=== PATIENT | male | born 1970 | race Caucasian/White ===

== ENCOUNTER → 2021-08-20 10:58 | Outpatient (CLI) | payer BC, SELFPAY ==
--- NOTE | ~2021-08-20 | XR_ITS ---
XR shoulder RT min 2V DATE: 08/20/2021 15:39 INDICATION: Arthralgia. Positive MARLO TECHNIQUE: 3 views COMPARISON: None FINDINGS: No fracture or dislocation, periosteal reaction or bone destruction. No abnormal soft tissu e calcification. IMPRESSION: No significant abnormality Reviewed, dictated and finalized at location A. IANCE SERVICER IMPRESSION: No significant abnormality
--- NOTE | ~2021-08-20 | XR_ITS ---
XR shoulder LT min 2V DATE: 08/20/2021 15:40 INDICATION: Arthralgia. Positive MARLO. TECHNIQUE: 4 views COMPARISON: None FINDINGS: There is prominent spurring at the lateral articular margin of the clavicle at the acromioc lavicular joint. No fracture or dislocation, periosteal reaction or bone destruction or abnormal soft tissue calcifica tion. IMPRESSION: Prominent degenerative spurring of the left acromioclavicular joint Reviewed, dictated and finalized at location A. RR TECHNICIAN
== END ==
PROVIDERS: Visit Provider Physician Assistant
DX: R76.8 Other specified abnormal immunological findings in serum (principal); M25.50 Pain in unspecified joint; M25.512 Pain in left shoulder; M25.511 Pain in right shoulder; M25.552 Pain in left hip; M25.551 Pain in right hip; M77.8 Other enthesopathies, not elsewhere classified
CPT/HCPCS: 73030

== ENCOUNTER → 2021-08-23 13:52 | Outpatient (CLI) | payer BC, SELFPAY ==
--- NOTE | ~2021-08-23 | XR_ITS ---
XR hip BI wo pelvis 08/23/2021 14:21 Indication: Arthralgias Procedure: 2 views of each hip Comparison: No prior studies for comparison. Findings: No fracture, subluxation or dislocation. No significant joint effusion. Surrounding osseous structures and soft tissues are unremarkable. Impression: 1: No acute abnormality of the hips. Reviewed, dictated and finalized at location A. D HAND Impression: 1: No acute abnormality of the hips.
== END ==
PROVIDERS: Visit Provider Physician Assistant
DX: R76.8 Other specified abnormal immunological findings in serum (principal); M25.50 Pain in unspecified joint
CPT/HCPCS: 73521

== ENCOUNTER 2022-02-06 00:29 | Day surgery (SDC) | payer BC, SELFPAY ==
[2022-02-03 09:53] VITALS: BMI 34.2
--- NOTE | 2022-02-03 10:01 | PC.NURSE ---
Report to the Outpatient Waiting Room, entrance under the green pavilion located off [facility], at time _1130_ on date _[id number]_. OR Time: 130pm_. - You and your visitor will be asked to self-screen and do not enter if you have any COVID symptoms. - Only one visitor and NO children visitors are allowed at this time. - The patient visitor is requested to leave or wait in car when not with patient due to restrictions. - A mask is required within the hospital. Patients may have clear liquids (water, carbonated beverages, clear teas, apple juice) until 3 hours prior to surgery with a maximum of 20 ounces. - No food from midnight until time of surgery Take the following medications with a SIP of water the morning of surgery: Prednisone Medications to discontinue per physician ___Vitamins and supplements Date to take last dose___Stop today. Please no make-up, nail [place] islander, hairspray, perfume, deodorant, or body powder the day of surgery. No jewelry (including any body piercings) or valuables the day of surgery, leave them at home. Please take a shower or bath the night before, or the morning of, surgery with an antibacterial soap. Wear comfortable, loose fitting clothing. - Jewelry must be removed prior to entering the operating room. Rings and piercings that are not removed may be cut off. - The hospital will not accept responsibility for valuables. - Please leave all valuables, including medications, at home the day of surgery. If you are going home after surgery, a licensed electric truck driver must drive you home. - NO public transportation without another adult. - We recommend that an adult stay with you for 24 hours following discharge. - We also recommend that you do not drive, make important decision, drink alcoholic beverages, or take any drugs that were not prescribed by your health care provider for at least 24 hours after your discharge time. Follow any additional instructions given to you from your surgeon. If you or anyone in your household have experienced Covid symptoms in the past week, please notify your surgeon or the nurse liaison at the phone number below for possible testing. Telephone instructions given to __Patient___and asked if any additional questions and then verbalized understanding. Patient advised to call surgeon office or pre surgery nurse liaison [phone] if any additional questions.
[2022-02-06] VITALS (7 sets, daily range): BP systolic 142–155; BP diastolic 66–84; PULSE 60–88; RESP 12–20; TEMP 36.5–36.9; O2SAT 98–100
--- NOTE | 2022-02-06 08:53 | P.PNAN_ITS ---
Anes - Initial Pre Proc Eval Procedure: Operation Date: 02/06/22 13:30 Proposed Procedures p Left Inguinal Hernia Repair - Prince Roy MD Date/Time: 02/06/22 08:53 Surgeon: Prince Roy MD Pre Op Diagnosis: Lt Ing Hernia Patient Data Age: 51 Gender: M Height: 1.73 m Weight: 102.2 kg Allergies Allergy/AdvReac Type Severity Reaction Status Date / Time No Known Allergies Allergy Verified 02/03/22 09:51 Home Medications Medication Instructions Recorded Confirmed Type tzjrwnct-iqx-vavok acid 300 1 tablet PO DAILY 08/05/21 02/06/22 History mcg-lycopene 600 mcg-lutein 300 mcg tablet (Centrum Silver Men) prednisone 5 mg tablet 6 mg PO BID 01/14/22 02/06/22 History calcium carbonate 500 mg calcium 500 mg PO DAILY 01/23/22 02/06/22 History (1,250 mg) chewable tablet (Calcium 500) tumeric 100 mg-ed 150 mg-olive 2 cap PO BID 02/03/22 02/06/22 History 50 mg-oreg 150 mg-caprylate capsule Patient hx anesthesia problems: none Family hx anesthesia problems: none Results Review: All pre-operative results and documents have been reviewed as part of the pre- operative evaluation. [facility] Past Medical History Medical History History of rectal fissure Family History Family History Father Family history of Alzheimer's disease Malignant neoplasm of prostate Mother Breast cancer Diabetes mellitus Depression Grandparent Colon cancer Grandparent Malignant neoplasm of prostate Other Family history of cardiovascular disease Hypertension Social History Social History Smoking status: Never smoker Alcohol intake: current Drinks per week: 12 Living arrangements: with family Spiritual care concerns: No Anes - Eval Final PreProcedure Day of Procedure 02/06/22 08:53 Patient weight: obese Heart: regular rate and rhythm Lungs: clear to auscultation Airway: Mallampati scale class II Neurological: alert and oriented Last oral intake: >/= 8 hours ASA classification: II Emergent: no Anesthetic plan: proceed Anesthesia type and monitoring: general GIVS and standard monitoring Results Review: All pre-operative results and documents have been reviewed as part of the pre- operative evaluation. Informed Consent: The patient's anesthetic plan and its attendant risks and benefits were discussed with the patient/family/POA. Questions were solicited and answers provided to the satisfaction of the patient/family/POA.
--- NOTE | 2022-02-06 12:11 | WPDHPUPDATE1 ---
History and Physical Update Update Date/Time: 02/06/22 12:11 History and Physical has been reviewed, including an updated exam of the patient. There are NO changes in the patient's condition. Risks, benefits, and alternatives have been discussed and questions answered. Patient agrees to proceed with procedure.
[2022-02-06] MEDS: LACTATED RINGERS 1,000 ML 30 ML IV CONT ×2 (12:45→16:11)
[2022-02-06] MEDS: ACETAMINOPHEN 500 MG TABLET 1000 MG PO (12:51)
[2022-02-06] MEDS: KETOROLAC 15 MG/ML VIAL (*BKC) IV PUSH (12:52)
[2022-02-06] MEDS: ceFAZolin 2 GM/D5W 50 ML 2 GM/50 ML BAG IVPB (14:06)
[2022-02-06] MEDS: BUPIVACAINE/EPINEPHRINE 0.25% 50 ML VIAL INFILTRATE (14:27)
--- NOTE | 2022-02-06 15:38 | W.PM.PROC2 ---
Procedure Note - Detailed Date of Procedure 02/06/22 Pre-op Diagnosis Lt Ing Hernia Post-op Diagnosis Same Procedure Performed Left inguinal hernia repair with large PerFix Light plug and patch Surgeon Prince Roy MD Mechanical Engineering Advisor KARINA Bey Anesthesia General (LMA), Local (0.25% BUPIVACAINE WITH EPINEPHRINE) and Other (Xaracoll) Indications Patient is a 51-year-old man with a bulge and discomfort in left groin. Examination showed a reducible left inguinal hernia. He is taken to surgery now for repair Findings Patient had an indirect hernia. There was no direct component Description of Procedure The patient was taken to surgery and anesthesia was introduced. Prep and drape of the left groin and genitalia was carried out. The proposed incision was marked on the skin. Local anesthetic was infiltrated into the skin and deeper subcutaneous tissues. Incision was made and dissection was carried down into the subcutaneous. Additional local was infiltrated into the subcutaneous. We were not able to keep the patient comfortable with the dissection. He was converted to general with LMA. This worked much better. We continued with the surgery and dissected down to the external oblique aponeurosis. The aponeurosis was exposed as was the external ring. Additional local was infiltrated deep to the aponeurosis in the area of the spermatic cord and inguinal canal contents. The aponeurosis was opened laterally and extended medially through the external ring. The leaves the aponeurosis were then freed from the underlying cord contents. The cord was then mobilized medially on a [place] drain. We dissected back to the internal ring further mobilizing the cord. The ileo inguinal nerve was carefully preserved and was left attached to the spermatic cord throughout the surgery. No direct hernia was noted. We dissected in the anteromedial aspect of the cord and found an indirect hernia sac. The sac was dissected free from the cord structures. It was dissected back to a high dissection. Was dunked into the retroperitoneum. The large PerFix Light plug was then placed in the defect. The plug was sutured to the transversalis fascia with interrupted 3-0 Vicryl suture. I then cut the patch to the appropriate size and placed over the inguinal canal floor. The lateral leaves were passed beyond the cord. I put a couple of 3-0 Vicryl sutures to anchor the distal aspect of the patch to the reflection of the inguinal ligament. The 1st piece of Xaracoll was then placed over the mesh. The cord and ilioinguinal nerve were then laid over the Xaracoll. The external oblique aponeurosis was then closed with interrupted 3-0 Vicryl suture. The 2nd piece of Xaracoll was then placed over the external oblique aponeurosis. Iggy's fascia was closed with interrupted 3-0 Vicryl suture. The last piece of Xaracoll was then placed in the subcutaneous. The skin was loosely approximated with interrupted subcuticular 4-0 Vicryl suture. The skin was finally closed with a running 4-0 Monocryl skin suture. The wound was dressed with Exofin surgical adhesive. The patient was awakened and taken to recovery in good condition. Sponge and needle counts were correct x2. Implants Large PerFix Light plug and patch, Xaracoll Estimated Blood Loss -5 Drains No Packing No Pathology None sent Complications No immediate complications Condition Stable Disposition PACU [facility] Billing Surgery - Charge Forward: Surgery Billing (Left inguinal hernia repair)
== END 2022-02-06 17:05 | disposition home or self-care (01) ==
PROVIDERS: Visit Provider Surgery
PROC: (CPT 49505; principal; 2022-02-06 13:30)
DX: K40.90 Unilateral inguinal hernia, without obstruction or gangrene, not specified as recurrent (principal); E66.9 Obesity, unspecified; Z68.38 Body mass index [BMI] 38.0-38.9, adult
CPT/HCPCS: 49505; A9270; C1781; J0690; J1100; J1885; J2250; J2405; J2704; J3010; J7120

== ENCOUNTER 2023-09-16 12:04 | Emergency (ER) | payer BC, SELFPAY ==
[2023-09-16] VITALS (7 sets, daily range): BP systolic 131–188; BP diastolic 69–82; PULSE 56–98; RESP 10–19; O2SAT 98–100
--- NOTE | ~2023-09-16 | CT_ITS ---
EXAMINATION: CTA chest PE protocol DATE: 09/16/2023 14:02 INDICATION: Chest discomfort and heaviness. TECHNIQUE: Computed tomography angiography (CTA) of the chest was performed with 100 mL Omnipaque-350 intravenous contrast timed to evaluate the pulmonary arteries. Coronal maximum intensity projection 3D-reconstructions were created by the technologist. Automated exposure control and iterative reconst ruction technique were employed. The dose-length product was 650.31 mGy-cm. COMPARISON: Chest CT 02/20/2012 FINDINGS: The lungs demonstrate mild atelectasis. No pleural effusion. The heart size is normal. No p ericardial effusion. There is no pulmonary embolus. There is mild thoracic spondylosis. IMPRESSION: 1. No pulmonary embolus. Reviewed, dictated and finalized at location A. IMPRESSION: 1. No pulmonary embolus.
--- NOTE | ~2023-09-16 | XR_ITS ---
EXAMINATION: XR chest 2V DATE: 09/16/2023 12:42 INDICATION: Central chest pain. Back pain. TECHNIQUE: Frontal and lateral views of the chest were obtained. COMPARISON: Chest 2 views 02/20/2012 FINDINGS: There is no pneumonia, pleural effusion, or pneumothorax. The heart size is normal. IMPRESSION: 1. No acute cardiopulmonary disease. Reviewed, dictated and finalized at location A.
--- NOTE | 2023-09-16 12:08 | ECG_ITS ---
Measurements Intervals [place] Rate: 61 P: 41 IA: 131 QRS: -3 QRSD: 110 T: 19 QT: 421 QTc: 426 Interpretive Statements SINUS RHYTHM INCOMPLETE RIGHT BUNDLE BRANCH BLOCK POSSIBLE LEFT VENTRICULAR HYPERTROPHY BORDERLINE ECG NO PREVIOUS ECG AVAILABLE FOR COMPARISON Electronically Signed On 09-16-2023 12:54:22 CDT by Skip Holder D.O.
[2023-09-16] MEDS: ASPIRIN 81 MG CHEWABLE TABLET 324 MG PO (12:19)
[2023-09-16 12:21] LABS: Glucose Point of Care 99 mg/dl (65-105)
[2023-09-16 12:22] LABS: Basophils Absolute Auto 0.1 K/mm3 (0.0-0.1); Basophils Percent Auto 0.7 % (0.2-1.2); Eosinophils Absolute Auto 0.2 K/mm3 (0-0.3); Eosinophils Percent Auto 2.1 % (0-4.4); Hematocrit 40.5 % (42.0-52.0); Hemoglobin 13.6 g/dL (14.0-18.0); Immature Granulocyte Absolute 0.01 K/mm3 (0.00-0.031); Immature Granulocyte Percent A 0.1 % (0-0.5); Lymphocytes Absolute Auto 2.65 K/mm3 (0.9-3.2); Lymphocytes Percent Auto 37.9 % (18.3-44.2); Mean Corpuscular HGB Conc 33.6 g/dl (32-36); Mean Corpuscular Hemoglobin 29.8 pg (26-34); Mean Corpuscular Volume 88.6 fl (80-100); Mean Platelet Volume 9.5 fl (7.4-10.4); Monocytes Absolute Auto 0.9 K/mm3 (0.1-0.6); Monocytes Percent Auto 12.4 % (2.6-8.5); Neutrophils Absolute Auto 3.3 K/mm3 (1.3-6.7); Neutrophils Percent Auto 46.8 % (45.5-73.1); Platelet Count Result 257 k/mm3 (150-375); Red Blood Count 4.57 M/mm3 (4.6-6.20); Red Cell Distribution Width 12.9 % (11.5-14.5)
[2023-09-16 12:32] LABS: Alanine Aminotransferase 25 U/L (6-50); Albumin Level 4.5 g/dL (3.5-5.1); Alkaline Phosphatase 69 U/L (38-126); Anion Gap 6 mmol/L (4-12); Aspartate Amino Transferase 29 U/L (17-59); Bilirubin,Total 0.8 mg/dL (0.2-1.3); Blood Urea Nitrogen 13 mg/dL (9-20); Calcium 9.4 mg/dL (8.4-10.2); Carbon Dioxide 29 mmol/L (22-30); Chloride 103 mmol/L (98-107); Estimated Glomerular Filt Rate > 60; Glucose 106 mg/dL (65-110); Lipase 136 U/L (23-300); Potassium 3.9 mmol/L (3.4-5.0); Sodium 138 mmol/L (137-145)
[2023-09-16 12:36] LABS: INR 0.9; Partial Thromboplastin Time 29.9 Seconds (22.3-36.8); Prothrombin Time 12.9 Seconds (11.1-14.7)
[2023-09-16 12:43] LABS: Troponin I < 0.012 ng/mL (0.000-0.034)
--- NOTE | 2023-09-16 13:10 | ED.CHESTPAIN ---
HPI - Chest Pain General Chief Complaint: Chest Pain Stated Complaint: chest pain, lightheaded Time Seen by Provider: 09/16/23 12:18 History of Present Illness HPI narrative: 53-year-old male present to the emergency department for evaluation intermittent heart palpitations this chest pressure and shortness of breath. Patient states he has had intermittent issues with heart palpitations of lost his entire life but typically they last only a few seconds. Patient states over the course of the last few days he has been having more frequent sensations of a rapid and irregular heartbeat. Patient states he has had episodes lasting up to 10 minutes and when he woke up Thursday he had heart palpitations nausea heartburn with associated nausea and diarrhea. Patient states he took some Tums and the symptoms resolved. Patient reports he also had episode of heart palpitations after exertion today. Patient states that he did have an episode on a treadmill a few weeks ago when he was walking and his heart rate was at 140 is 160s which was atypical for the level of his exertion. Patient has not worked out since then. Patient states that he has had issues with chest pain and been diagnosed previously with anxiety. Patient did have a stress test approximately 5-10 years ago. Related Data Home Medications Medication Instructions Recorded Confirmed gwaywvfn-ri-vzhsp 300 mcg-K 60 1 tablet PO DAILY 08/05/21 03/13/22 mcg-lycop 600 mcg-lutein 300 mcg tablet (Centrum Silver Men) prednisone 5 mg tablet 6 mg PO BID 01/14/22 03/13/22 Allergies Allergy/AdvReac Type Severity Reaction Status Date / Time No Known Allergies Allergy Verified 03/13/22 09:16 Review of Systems Review of Systems: All systems reviewed & are unremarkable except as noted in HPI and below PMFSH Past Medical History Medical History History of rectal fissure Surgical History Surgical History H/O inguinal hernia repair Left Inguinal Hernia Repair 02/06/22 Family History Family History Father Family history of Alzheimer's disease Malignant neoplasm of prostate Mother Breast cancer Diabetes mellitus Depression Grandparent Colon cancer Grandparent Malignant neoplasm of prostate Other Family history of cardiovascular disease Hypertension Social History Social History Smoking status: Never smoker Alcohol intake: current Drinks per week: 12 Living arrangements: with family Spiritual care concerns: No Exam Narrative: APPEARANCE: Well appearing, no pain, no distress, well-nourished. HEAD: normocephalic, atraumatic. EYES: PERRLA/EOMI, conjunctivae clear. NOSE: Normal no drainage EARS:TMS clear with good light reflex. THROAT: Pharynx clear, no exudate. NECK: Supple. No adenopathy, no masses. RESPIRATORY: Airway patent, respirations nonlabored. Clear to auscultation bilaterally, no rales, rhonchi, wheezing. CARDIOVASCULAR: Regular rate and rhythm without murmurs rubs or gallops. ABDOMINAL: Soft, nontender, nondistended, normal bowel sounds MUSCULOSKELETAL: Moves all extremities. Strength/ROM intact, No edema, No calf tenderness. NEURO: Alert. Cranial nerves II through XII intact. Grossly intact SKIN: Warm, dry. Normal Color Course Course Emergency Course: Patient was updated on the results of his workup and patient was encouraged to have close follow-up with Cardiology. Vital Signs Vital signs: Vital Signs Pulse Rate 60 09/16/23 12:12 Respiratory Rate 10 L 09/16/23 12:12 Blood Pressure 188/78 H 09/16/23 12:12 Pulse Oximetry 100 09/16/23 12:12 Oxygen Delivery Room Air 09/16/23 12:12 Pulse Rate 65 09/16/23 16:29 Respiratory Rate 13 09/16/23 16:29 Blood Pressure 138/69 0
[2023-09-16 13:28] LABS: Magnesium 2.1 mg/dL (1.6-2.3)
[2023-09-16 13:38] LABS: D Dimer 0.66 ug/mL (<0.48)
[2023-09-16 14:49] LABS: NT Pro B Type Natriuretic Pept 93 pg/mL (19.9-100)
--- NOTE | 2023-09-16 15:08 | ECG_ITS ---
Measurements Intervals [place] Rate: 52 P: 37 SD: 144 QRS: 1 QRSD: 102 T: 21 QT: 443 QTc: 412 Interpretive Statements SINUS BRADYCARDIA INCOMPLETE RIGHT BUNDLE BRANCH BLOCK BORDERLINE ECG COMPARED TO ECG 09/16/2023 12:10:57 SINUS BRADYCARDIA NOW PRESENT Electronically Signed On 09-16-2023 16:12:30 CDT by Skip Holder D.O.
[2023-09-16 15:58] LABS: Troponin I < 0.012 ng/mL (0.000-0.034)
== END 2023-09-16 16:30 | disposition home or self-care (01) ==
PROVIDERS: Emergency Medicine; Emergency Provider Emergency Medicine; PCP Physician Assistant
DX: R00.2 Palpitations (principal); R00.1 Bradycardia, unspecified; I45.10 Unspecified right bundle-branch block; R94.31 Abnormal electrocardiogram [ECG] [EKG]
CPT/HCPCS: 36415; 71046; 71275; 80053; 82948; 83690; 83735; 83880; 84443; 84484; 85025; 85380; 85610; 85730; 93005; 99284; A9270; Q9967

== ENCOUNTER 2024-09-27 00:11 | Day surgery (SDC) | payer BC, SELFPAY ==
[2024-06-03 14:35] VITALS: BMI 31.8
--- NOTE | 2024-06-26 10:50 | SUR.PREOP ---
Pt called this am to cancel his procedure on 06/27 due to provider availability. Pt rescheduled to 09/27 at 0730.
[2024-09-19 10:41] VITALS: BMI 31.8
--- OUTSIDE RECORDS SUMMARY | 2024-09-27 00:13 | XMS_ITS | Referral Summary ---
Author Organization [facility] [address] [facility] Address [address] [place] [id number] Care Team Providers Care Marketing And Communications Officer Name Role Phone Sylvester Dougherty Primary Care Provider Aleksandr Cisneros MD Unavailable [phone] Encounters Date Type Department Care Team Description 07/21/2024 11:30 AM MERCURY WASHER Office Visit [facility] Medical Group Cardiology [address] [facility] [address] [place] [id number] Anna Mercado NP Palpitations (Primary Dx) from Last 3 Months Allergies No known active allergies Medications No known medications Active Problems Problem Noted Date Diagnosed Date Chest pain 12/31/2023 Palpitations 12/31/2023 residential (current) use of systemic steroids Assessment & Plan (08/20/2022 3:03 PM MERCURY WASHER): Patient was advised of the potential side effects of steroids, including but not limited to increased blood sugar, weight gain, avascular necrosis, glaucoma, cataracts, and/or osteoporosis. Discussed optimizing bone health while on systemic steroids including vitamin D 2000IU daily and calcium 600-800mg daily. DEXA ordered last visit but has not been done. Assessment & Plan (04/23/2022 3:22 PM CDT): Patient was advised of the potential side effects of steroids, including but not limited to increased blood sugar, weight gain, avascular necrosis, glaucoma, cataracts, and/or osteoporosis. Discussed optimizing bone health while on systemic steroids including vitamin D 2000IU daily and calcium 600-800mg daily. Will check DEXA as he has been on prednisone for close to a year now. Assessment & Plan (01/14/2022 3:00 PM CDT): Patient was advised of the potential side effects of steroids, including but not limited to increased blood sugar, weight gain, avascular necrosis, glaucoma, cataracts, and/or osteoporosis. Discussed optimizing bone health while on systemic steroids including vitamin D 2000IU daily and calcium 600-800mg daily. No need for DEXA or anti-resorptive medications at this time. Assessment & Plan (10/15/2021 4:42 PM CDT): Patient was advised of the potential side effects of steroids, including but not limited to increased blood sugar, weight gain, avascular necrosis, glaucoma, cataracts, and/or osteoporosis. Discussed optimizing bone health while on systemic steroids including vitamin D 2000IU daily and calcium 600-800mg daily. No need for DEXA or anti-resorptive medications at this time. Positive MARLO (antinuclear antibody) 08/20/2021 Myalgia 08/20/2021 Overview (09/02/2021): Labs (08/20/2021): Cbc, cmp wnl, ESR 19, CRP 3.3, negative myositis panel, LDH 145, ald 4.4, CK 53 AVISE (08/20/2021): MARLO pos by lara only. Equivocal anti-B2 glycoprotein IgM (9.2), +anti-histone (1.79), neg ANCA, MPO, Pr3, GBM. Hepatitis negative: 08/2021 XR 08/20/21: R shoulder: negative L shoulder: prominent degenerative spurring of left AC joint. B/l hips: negative Assessment & Plan (08/20/2022 3:06 PM MERCURY WASHER): Serologies revealed normal muscle enzymes, negative myositis panel, and normal inflammatory markers (ESR/CRP). AVISE panel was unremarkable for any autoantibodies and ANCA vasculitis panel was also negative. Myalgias significantly improved with prednisone 10mg BID but denied complete resolve. Pruritic red rash on lower legs resolved with prednisone and denies personal hx of psoriasis however remains suspicious at this time. Since last visit, he tapered completely off prednisone as of 08/20/22 with continued benefit of myalgias. Good strength noted on exam today but has some reproducible pain only in the hips but notes recent activity at work may have exacerbated this. There is no evidence of peripheral synovitis or tenderness today to suggest an inflammatory arthritis. Discussed possibility of MTX as a steroid sparing agent in the future and provided a handout on MTX previously. Will remain off prednisone and advised to monitor for any recurrence of symptoms to suggest recurrence of PMR. Advised to call should he notice recurrence and can restart prednisone if necessary. Follow up as needed. Assessment & Plan (04/23/2022 4:00 PM CDT): Serologies revealed normal muscle enzymes, negative myositis panel, and normal inflammatory markers (ESR/CRP). AVISE panel was unremarkable for any autoantibodies and ANCA vasculitis panel was also negative. Myalgias significantly improved with prednisone 10mg BID but denied complete resolve. Pruritic red rash on lower legs resolved with prednisone and denies personal hx of psoriasis however remains suspicious at this time. Since last visit, he has tapered prednisone 3mg daily with continued benefit of myalgias. Good strength noted on exam today but has some reproducible pain. Discussed PMR and tapering prednisone while he has resolve of myalgias; however, he continues to prefer tapering at this time as he feels the myalgias remain improved and are tolerable. There is no evidence of peripheral synovitis or tenderness today to suggest an inflammatory arthritis. Discussed possibility of MTX as a steroid sparing agent in the future and provided a handout on MTX. Based on improvement with prednisone, his symptoms remain suspicious for PMR however the fact that he does not have complete resolve of pain w/ rash questionable for psoriasis is also suspicious for psoriatic arthritis. Will continue to treat as PMR at this time however will monitor for any recurrence of symptoms to suggest psoriatic arthritis. Will continue tapering prednisone by 1mg every 4-8 weeks as tolerated. Should he have difficulty tapering prednisone, then will likely need to use MTX as a steroid sparing agent. Follow up in 3 months. Sooner if needed. Assessment & Plan (01/14/2022 4:34 PM CDT): Serologies revealed normal muscle enzymes, negative myositis panel, and normal inflammatory markers (ESR/CRP). AVISE panel was unremarkable for any autoantibodies and ANCA vasculitis panel was also negative. Myalgias significantly improved with prednisone 10mg BID but denied complete resolve. Pruritic red rash on lower legs resolved with prednisone and denies personal hx of psoriasis however remains suspicious at this time. Since last visit, he has tapered prednisone 7mg daily with continued benefit of myalgias. Does note some left inguinal pain that radiates into the thigh but exacerbated by heavy lifting and patient feels he may have a hernia. Good strength noted on exam today but has some reproducible pain. Discussed PMR and tapering prednisone while he has resolve of myalgias; however, he continues to prefer tapering at this time as he feels the myalgias remain improved and are tolerable. There is no evidence of peripheral synovitis or tenderness today to suggest an inflammatory arthritis. Discussed possibility of MTX as a steroid sparing agent in the future. Based on improvement with prednisone, his symptoms remain suspicious for PMR however the fact that he does not have complete resolve of pain w/ rash questionable for psoriasis is also suspicious for psoriatic arthritis. Will continue to treat as PMR at this time however will monitor for any recurrence of symptoms to suggest psoriatic arthritis. Will continue tapering prednisone by 1mg every 30 days. Should he have difficulty tapering prednisone, then will likely need to use MTX as a steroid sparing agent. Follow up in 3 months. Sooner if needed. Assessment & Plan (10/15/2021 4:38 PM CDT): Serologies revealed normal muscle enzymes, negative myositis panel, and normal inflammatory markers (ESR/CRP). AVISE panel was unremarkable for any autoantibodies and ANCA vasculitis panel was also negative. Myalgias significantly improved with prednisone 10mg BID but denied complete resolve. Pruritic red rash on lower legs resolved with prednisone and denies personal hx of psoriasis however remains suspicious at this time. Since last visit, he has tapered prednisone 10mg daily without recurrence of myalgias. Does note some left inguinal pain that radiates into the thigh but exacerbated by heavy lifting and patient feels he may have a hernia. Good strength noted on exam today without reproducible pain. Based on improvement with prednisone, his symptoms remain suspicious for PMR however the fact that he does not have complete resolve of pain w/ rash questionable for psoriasis is also suspicious for psoriatic arthritis. Will continue to treat as PMR at this time however will monitor for any recurrence of symptoms to suggest psoriatic arthritis. Will continue tapering rednisone to 9mg daily and then reduce by 1mg every 30 days. Should he have difficulty tapering prednisone, then will likely need to use MTX as a steroid sparing agent. Follow up in 3 months. Sooner if needed. Assessment & Plan (09/03/2021 4:16 PM CDT): Serologies revealed normal muscle enzymes, negative myositis panel, and normal inflammatory markers (ESR/CRP). AVISE panel was unremarkable for any autoantibodies and ANCA vasculitis panel was also negative. XR revealed degenerative spurring of the left AC joint but otherwise displayed normal findings in the R shoulder and bilateral hips. Since last visit, started prednisone 10mg BID with significant relief of pain however denies complete resolve of shoulder/hip girdle pain. Pruritic red rash on lower legs resolved with prednisone and denies personal hx of psoriasis however remains suspicious at this time. Good strength noted on exam today with some reproducible pain in the shoulders with resisted abduction. Based on improvement with prednisone, his symptoms remain suspicious for PMR however the fact that he does not have complete resolve of pain w/ rash questionable for psoriasis is also suspicious for psoriatic arthritis. Will continue to treat as PMR at this time however will monitor for any recurrence of symptoms to suggest psoriatic arthritis. Will continue prednisone 10mg BID for the next 2 weeks then decrease to 10mg qAM and 5mg qPM and remain on this until next visit. Should he have difficulty tapering prednisone, then will likely need to use MTX as a steroid sparing agent. Follow up in 6 weeks. Sooner if needed. Seen with Dr. Cisneros. Assessment & Plan (08/20/2021 10:34 AM MERCURY WASHER): 51-year-old male with +MARLO c/o progressive myalgias involving the proximal shoulder (R>L) and pelvic girdles. Mild relief with celebrex and aleve. C/o significant AM pain and stiffness that slightly improves with activity. Significant pain with palpation and resisted ROM in the bilateral shoulders and hips on exam today. No obvious peripheral joint findings on exam. Symptoms and exam are suspicious for PMR vs inflammatory arthritis. Will order appropriate serologies and radiographs to further evaluate. Will also give prednisone 20mg daily to evaluate for symptoms response. Follow up in 2 weeks. Sooner if needed. Seen with Dr. Cisneros. Social History Tobacco Use Types Packs/Day Years Used Date Smoking Tobacco: Never Sex and Gender Information Value Date Recorded Sex Assigned at Not on file Legal Sex Male 6:53 PM MERCURY WASHER Gender Identity Not on file Sexual Orientation Not on file Last Filed Vital Signs Vital Sign Reading Time Taken Comments Blood Pressure 142/80 07/21/2024 11:45 AM MERCURY WASHER Pulse 69 07/21/2024 11:45 AM MERCURY WASHER Temperature 36.2 C (97.2 F) 09/03/2021 3:34 PM CDT Respiratory Rate - - Oxygen Saturation 98% 07/21/2024 11:45 AM MERCURY WASHER Inhaled Oxygen Concentration - - Weight 100.7 kg (222 lb) 07/21/2024 11:45 AM MERCURY WASHER Height 172.7 cm (5' 8 ) 07/21/2024 11:45 AM MERCURY WASHER Body Mass Index 33.75 07/21/2024 11:45 AM MERCURY WASHER Plan of Treatment Not on file Procedures Procedure Name Priority Date/Time Associated Diagnosis Comments HEPATITIS PANEL, ACUTE Routine 08/20/2021 10:10 AM MERCURY WASHER Positive MARLO (antinuclear antibody) Polyarthralgia Fatigue, unspecified type from Last 3 Months or Most Recently Relevant to Health Maintenance Results * Hepatitis panel, acute (08/20/2021 10:10 AM MERCURY WASHER) Hep A IgM NON-REACTI VE NON-REACT TOY [facility] Comment: For additional information, please refer to http://education.[employer].ArcMail/faq/ONY609 (This link is being provided for informational/ educational purposes only.) HepBsAg NON-REACTI VE NON-REACT TOY [facility] Hep B core IgM NON-REACTI VE NON-REACT TOY [facility] Hep C Ab NON-REACTI VE NON-REACT OTY [facility] SIGNAL TO CUT-OFF 0.01 <1.00 [facility] Comment: HCV antibody was non-reactive. There is no laboratory evidence of HCV infection. In most cases, no further action is required. However, if recent HCV exposure is suspected, a test for HCV RNA (test code 63987) is suggested. For additional information please refer to http://education.[employer]/faq/PCT54u7 (This link is being provided for informational/ educational purposes only.) Blood specimen (specimen) 08/20/2021 10:10 AM MERCURY WASHER 08/20/2021 10:11 AM MERCURY WASHER [facility] NERNC ORDERABLES Final Result [facility] [id number] [address] [id number] from Last 3 Months or Most Recently Relevant to Health Maintenance Insurance [employer] Care Teams Marketing And Communications Officer Relationship Specialty Start Date End Date Sylvester Dougherty PA [address] [facility] [address] [place] [address] PCP - General Physician Lead Security Officer 08/14/21 Aleksandr Cisneros MD [address] [place] [address] Consulting Physician Rheumatology 08/14/21
--- OUTSIDE RECORDS SUMMARY | 2024-09-27 00:13 | XMS_ITS | Clinical Summary ---
Author Organization [facility] [address] [facility] Address [address] [place] [id number] Care Team Providers Care Trial Lawyer Name Role Phone Sylvester Dougherty Primary Care Provider Aleksandr Cisneros MD Unavailable [phone] Allergies No known active allergies Medications No known medications Active Problems Problem Noted Date Diagnosed Date Chest pain 12/31/2023 Palpitations 12/31/2023 lobsterman (current) use of systemic steroids Assessment & Plan (08/20/2022 3:03 PM PHARMACEUTICAL ANALYST): Patient was advised of the potential side [...] negative Assessment & Plan (08/20/2022 3:06 PM PHARMACEUTICAL ANALYST): Serologies revealed normal muscle enzymes, negative myositis [...] Cisneros. Assessment & Plan (08/20/2021 10:34 AM PHARMACEUTICAL ANALYST): 51-year-old male with +MARLO c/o progressive myalgias [...] Sooner if needed. Seen with Dr. Cisneros. Encounters Date Type Department Care Team Description 07/21/2024 11:30 AM PHARMACEUTICAL ANALYST Office Visit [facility] Medical Group Cardiology [address] [place] [phone] Anna Mercado NP Palpitations (Primary Dx) from Last 3 Months Surgical History Surgery Date Site/Laterality Comments TREATMENT FISTULA ANAL 06/22/2018 - 06/21/2019 Family History Medical History Relation Name Comments Hypertension Brother Hypertension Sister Relation Name Status Comments Brother Sister Social History Tobacco Use Types Packs/Day Years Used Date Smoking Tobacco: Never Sex and Gender Information Value Date Recorded Sex Assigned at Not on file Legal Sex Male 6:53 PM PHARMACEUTICAL ANALYST Gender Identity Not on file Sexual Orientation Not on file Obstetrics History Last Filed Vital Signs Vital Sign Reading Time Taken Comments Blood Pressure 142/80 07/21/2024 11:45 AM PHARMACEUTICAL ANALYST Pulse 69 07/21/2024 11:45 AM PHARMACEUTICAL ANALYST Temperature 36.2 C (97.2 F) 09/03/2021 3:34 PM CDT Respiratory Rate - - Oxygen Saturation 98% 07/21/2024 11:45 AM PHARMACEUTICAL ANALYST Inhaled Oxygen Concentration - - Weight 100.7 kg (222 lb) 07/21/2024 11:45 AM PHARMACEUTICAL ANALYST Height 172.7 cm (5' 8 ) 07/21/2024 11:45 AM PHARMACEUTICAL ANALYST Body Mass Index 33.75 07/21/2024 11:45 AM PHARMACEUTICAL ANALYST Plan of Treatment Health Maintenance Due Date Last Done Comments Colon Cancer Screening-Colonoscopy 1971 Depression Screening 1971 Prostate Cancer Screening-PSA 1971 DTaP/Tdap/Td Vaccine (1 - Tdap) 1982 Hepatitis B Screening 1989 Regular Well Visit/Exam 18-64 1989 Zoster Vaccine (1 of 2) 2021 Influenza Vaccine (#1) 2024 Hepatitis C Screening Completed 08/20/2021 Pneumococcal vaccine <65 Aged Out No longer eligible based on patient's age to complete this topic Procedures Procedure Name Priority Date/Time Associated Diagnosis Comments HEPATITIS PANEL, ACUTE Routine 08/20/2021 10:10 AM PHARMACEUTICAL ANALYST Positive MARLO (antinuclear antibody) Polyarthralgia Fatigue, unspecified type from Last 3 Months or Most Recently Relevant to Health Maintenance Results * Hepatitis panel, acute (08/20/2021 10:10 AM PHARMACEUTICAL ANALYST) Hep A IgM NON-REACTI VE NON-REACT TOY [facility] Comment: For additional information, please refer to http://[employer].LayerVault/faq/NVC713 (This link is being provided for informational/ educational purposes only.) HepBsAg NON-REACTI VE NON-REACT TOY [facility] Hep B core IgM NON-REACTI VE NON-REACT TOY [facility] Hep C Ab NON-REACTI VE NON-REACT TOY [facility] SIGNAL TO CUT-OFF 0.01 <1.00 [facility] Comment: HCV antibody was non-reactive. There is no laboratory evidence of HCV infection. In most cases, no further action is required. However, if recent HCV exposure is suspected, a test for HCV RNA (test code 72158) is suggested. For additional information please refer to http://[employer]LayerVault/faq/KYQ63f8 (This link is being provided for informational/ educational purposes only.) Blood specimen (specimen) 08/20/2021 10:10 AM PHARMACEUTICAL ANALYST 08/20/2021 10:11 AM PHARMACEUTICAL ANALYST [facility] - NERAL ORDERABLES Final Result [facility] [address] [place] [address] from Last 3 Months or Most Recently Relevant to Health Maintenance Insurance [employer] Care Teams Trial Lawyer Relationship Specialty Start Date End Date Sylvester Dougherty PA [address] [facility] [address] [place] [address] PCP - General Physician Doctor Of Chiropractic 08/14/21 Aleksandr Cisneros MD [address] [place] [address] Consulting Physician Rheumatology 08/14/21
--- OUTSIDE RECORDS SUMMARY | 2024-09-27 00:13 | XMS_ITS | Clinical Summary ---
Author Organization [facility] Address [facility] [place] [address] Care Team Providers Care Mud Trucker Name Role Phone Unavailable Primary Care Provider Unavailabl e Social History Tobacco Use Types Packs/Day Years Used Date Smoking Tobacco: Never Assessed Sex and Gender Information Value Date Recorded Sex Assigned at Not on file Legal Sex Male 5:37 PM CDT Gender Identity Not on file Sexual Orientation Not on file Plan of Treatment Health Maintenance Due Date Last Done Comments Colorectal Cancer Screening Colonoscopy (10 Years) 1971 Annual Physical 1974 Hepatitis C 1989 DTaP, Tdap and Td Vaccines ( 1 - Tdap) 1990 Hepatitis B Vaccines (1 of 3 - 19+ 3-dose series) 1990 Zoster Vaccines (1 of 2) 2021 COVID-19 Vaccine (1 - 2023-2 5 season) 2024 Meningococcal B Vaccine Aged Out No l onger eligible based on patient's age to complete this topic Meningococcal Vaccine Aged Out No marie ashley eligible based on patient's age to complete this topic Pneumococcal Vaccine: Pediat rics (0 to 5 Years) and At-Risk Patients (6 to 64 Years) Aged Out No longer eligible b ased on patient's age to complete this topic RSV Immunizations Under 20 Months Aged Out No longer eligible based on patient's age to complete this topic
[2024-09-27 06:22] VITALS: BP 144/77; PULSE 61; RESP 20; TEMP 36.1; O2SAT 99; BMI 32.1
[2024-09-27] MEDS: LACTATED RINGERS 1,000 ML 150 ML IV CONT (06:32)
--- NOTE | 2024-09-27 07:17 | WPDANESEPPF ---
Anes - Initial Pre Proc Eval Procedure: Operation Date: 09/27/24 07:30 Proposed Procedures p Screening Colonoscopy - Felipe Cardoso MD Date/Time: 09/27/24 07:17 Surgeon: Felipe Cardoso MD Pre Op Diagnosis: screening malignant neoplasm colon and rectum Patient Data Age: 54 Gender: M Height: 1.73 m Weight: 95.7 kg Last Vital Signs Temp 36.1 C L 09/27/24 06:22 Pulse 61 09/27/24 06:22 Resp 20 09/27/24 06:22 BP 144/77 H 09/27/24 06:22 Pulse Ox 99 09/27/24 06:22 O2 Del Method Room Air 09/27/24 06:22 Allergies Allergy/AdvReac Type Severity Reaction Status Date / Time No Known Allergies Allergy Verified 09/27/24 06:21 Home Medications ?Medication ?Instructions ?Recorded ?Confirmed ?Type No Home Medications 06/03/24 09/19/24 History Patient hx anesthesia problems: none Family hx anesthesia problems: none Results Review: All pre-operative results and documents have been reviewed as part of the pre-operative evaluation. [facility] Past Medical History Medical History (Updated 09/27/24 @ 07:22 by Luigi Lara DO) Palpitation History of rectal fissure Surgical History Surgical History H/O inguinal hernia repair Left Inguinal Hernia Repair 02/06/22 Family History Family History Father Family history of Alzheimer's disease Malignant neoplasm of prostate Mother Breast cancer Diabetes mellitus Depression Grandparent Colon cancer Grandparent Malignant neoplasm of prostate Other Family history of cardiovascular disease Hypertension Social History Social History Smoking status: Never smoker Alcohol intake: current Drinks per week: 12 Substance use: never Living arrangements: alone Spiritual care concerns: No Anes - Eval Final PreProcedure Day of Procedure 09/27/24 07:17 Patient weight: obese Heart: regular rate and rhythm Lungs: clear to auscultation Airway: Mallampati scale class II Neurological: alert and oriented Last oral intake: >/= 8 hours ASA classification: II Emergent: no Anesthetic plan: proceed Anesthesia type and monitoring: general GIVS and standard monitoring Results Review: All pre-operative results and documents have been reviewed as part of the pre-operative evaluation. Informed Consent: The patient's anesthetic plan and its attendant risks and benefits were discussed with the patient/family/POA. Questions were solicited and answers provided to the satisfaction of the patient/family/POA.
--- NOTE | 2024-09-27 07:29 | PM.HPGS ---
History of Present Illness History of Present Illness Consent: Risks, benefits, and alternatives have been discussed and questions answered. Patient agrees to proceed with procedure. Chief complaint: screening malignant neoplasm colon and rectum Narrative: Isiah Hess is a 54 year old male here for screening colonoscopy, had one about 15 years ago Review of Systems Review of Systems: All systems reviewed & are unremarkable except as noted in HPI and below PMFSH Past Medical History Medical History (Updated 09/27/24 @ 07:29 by Felipe Cardoso MD) Colon cancer screening Palpitation History of rectal fissure Surgical History Surgical History H/O inguinal hernia repair Left Inguinal Hernia Repair 02/06/22 Family History Family History Father Family history of Alzheimer's disease Malignant neoplasm of prostate Mother Breast cancer Diabetes mellitus Depression Grandparent Colon cancer Grandparent Malignant neoplasm of prostate Other Family history of cardiovascular disease Hypertension Social History Social History Smoking status: Never smoker Alcohol intake: current Drinks per week: 12 Substance use: never Living arrangements: alone Spiritual care concerns: No Meds Home Medications and Allergies Home Medications ?Medication ?Instructions ?Recorded ?Confirmed ?Type No Home Medications 06/03/24 09/19/24 History Allergies Allergy/AdvReac Type Severity Reaction Status Date / Time No Known Allergies Allergy Verified 09/27/24 06:21 Vital Signs Vital Signs - 24 hr 09/27/24 06:22 Temperature 96.9 F L Pulse Rate 61 Respiratory Rate 20 Blood Pressure 144/77 H Pulse Oximetry 99 Oxygen Delivery Room Air Exam Const: General: comfortable and no acute distress HENMT: Face/Nose/Sinus: Normal nares present Eyes: General: appearance normal, both eyes and all related structures Neck: Neck: no JVD Resp: Auscultation: clear to auscultation bilaterally Cardio: Rate: regular rate Rhythm: regular rhythm GI: Inspection: non-distended GI Palp: Yes Soft to palpation Skin: General skin exam: normal color Neuro: General: gait normal Speech: normal speech Extrem: General: normal to inspection Psych: Mental Status: mental status grossly normal Assessment and Plan Assessment and plan (1) Colon cancer screening: Code(s): Z12.11 - Encounter for screening for malignant neoplasm of colon Status: Acute Assessment and Plan: colonoscopy
[2024-09-27 07:42] VITALS: BP 128/59; PULSE 61; RESP 18; O2SAT 98
[2024-09-27 07:52] VITALS: BP 123/60; PULSE 59; RESP 19; O2SAT 99
[2024-09-27 08:02] VITALS: BP 124/65; PULSE 55; RESP 14; O2SAT 100
== END 2024-09-27 08:11 | disposition home or self-care (01) ==
PROVIDERS: PCP Physician Assistant; Referring Provider Internal Medicine; Visit Provider Internal Medicine Gastroenterology
PROC: 0DJD8ZZ Inspection of Lower Intestinal Tract, Via Natural or Artificial Opening Endoscopic (ICD-10-PCS; CPT 45378; principal; 2024-09-27 07:30)
DX: Z12.11 Encounter for screening for malignant neoplasm of colon (principal); R00.2 Palpitations; E66.9 Obesity, unspecified; Z68.32 Body mass index [BMI] 32.0-32.9, adult; Z98.890 Other specified postprocedural states; Z87.19 Personal history of other diseases of the digestive system; Z80.42 Family history of malignant neoplasm of prostate; Z80.3 Family history of malignant neoplasm of breast; Z80.0 Family history of malignant neoplasm of digestive organs; Z82.49 Family history of ischemic heart disease and other diseases of the circulatory system
CPT/HCPCS: 45378; J2704; J7120